=== PATIENT | male | born 1965 | race African-American/Black ===

== ENCOUNTER 2021-06-24 12:00 | Emergency (ER) | payer SELFPAY ==
[2021-06-24 12:01] VITALS: BP 149/82; PULSE 63; RESP 16; TEMP 36.6; O2SAT 97
--- NOTE | 2021-06-24 12:30 | W.ED.GENAD ---
Discharge Plan Disposition Patient Disposition: HOME Condition: Good Discharge Details Clinical Impression: Right sided abdominal pain Primary Care Provider: Unknown,Unknown ED Provider: Renu Anna Home Meds and New Rx's Prescriptions: No Action No Known Home Meds RF: 0 Discharge Instructions Instructions: Abdominal Pain (ED) Additional Instructions: Your exam is reassuring here today. You do not have any evidence to suggest emergent process. Your urinalysis did not show any blood which would increase my concern for potential kidney stone. No evidence of infection. You do look dehydrated. Please encourage hydration. Please try to have a more typical diet. If you develop increased pain, fever/chills, inability to hydrate or other new/worsening symptoms care urgent with again. Otherwise, please follow-up with primary care in 2 weeks when you return home for reevaluation. Discharge Data Discharge Date/Time-TO BE ENTERED AT DEPARTURE: 06/24/21 13:42 Medical Decision Making Patient is a pleasant 55 year old male presenting today with c/c of right-sided abdominal discomfort. States the pain began 2 hours ago. Describes a progressive onset. He states that he has had similar pain historically and was diagnosed with gas pain. Patient believes that this week his diet largely contributed to this. Patient typically resides in [facility] and has been working here for the week. He states that his hydration as well as dietary habits have been quite poor over the past week. He is concerned that he may have recurrent gas discomfort. Denies any fevers or chills. Denies any nausea or vomiting. No change in bowel habits or urinary habits. Denies any hematuria. Denies any testicular pain. Denies any rash. No trauma. Patient has been treating his discomfort topically with an onion. When he was getting in the ambulance, had complete resolution of his discomfort. On exam, patient appears nontoxic. He indicates the right lateral iliac area is area of discomfort. He has no abdominal discomfort on palpation. No pain over McBurney's point. Negative Denis's exam. No CVA tenderness. Vital signs are stable. He has no pain with palpation or movement of his hip. Ambulating normally. The patient has had full resolution of his symptoms prior to coming in, and I do not see any evidence of persistent discomfort or emergent abdominal pathology, do not feel that imaging is warranted at this time. He states that he has had similar discomfort in the past. I do question if this potentially be a kidney stone. However, even if it was, and found to have point season pain-free for quite some time. We will monitor the patient for a little while longer to ensure no recurrence of discomfort. Will obtain urinalysis to look for infection or hematuria. Patient eats lunch, took a nap and states that he is feeling much improved. His urinalysis shows elevated specific gravity but he has been hydrating orally here. No evidence of hematuria or infection. Discussed findings with the patient. He is quite reassured. Follow-up with his primary care provider when she returns home. I did encourage that even while he is away, he try to find the dietary options that we will keep his pain at bay that is found to have been something that he suffered from historically. Return precautions were discussed. Encourage hydration. All of his questions and concerns were addressed and he is agreement this plan. HPI General Mode of arrival: EMS. Date/Time Provider Initiated Documentation: 06/24/21 12:05. Limitations to Documentation: no limitations. Information obtained by: patient, EMS and RN notes reviewed. History of Present Illness 55 year old M presents to the emergency department with the chief complaint of right sided abdominal pain, described as mild (denies pain currently, states he is 100% normal), Quality is described as stabbing, and is localized to the abdomen. Patient reports no radiation. Patient started experiencing this hour(s) (2) and it has been now resolved. Movement improves symptom(s), Eating worsens symptoms (believes it was associated with dietary changes) . Patient notes no other symptoms.; denies chest pain, cough, fever/chills, loss of appetite, nausea/vomiting, rash and shortness of breath. Patient did receive the following treatments prior to arrival, none Related Data Home Medications Medication Instructions Recorded Confirmed Unknown [No Known Home Meds] 06/24/21 06/24/21 Allergies Allergy/AdvReac Type Severity Reaction Status Date / Time No Known Allergies Allergy Unverified 06/24/21 12:05 General Stated Complaint: FlankPain ASHLEY: 4 Review of Systems Constitutional Constitutional: Reports as per HPI, Denies chills, Reports fatigue (states he has been working 12hr shifts) and Denies fever(s) Cardiovascular Cardiovascular: Reports as per HPI, Denies chest pain and Denies dyspnea Respiratory Respiratory: Reports as per HPI, Denies cough and Denies dyspnea Gastrointestinal Gastrointestinal: Reports as per HPI Genitourinary Genitourinary: Denies system reviewed and no additional complaints, except as documented (patient denies any change in urinary habits), Denies hematuria, Denies difficulty urinating, Denies genital pain, Denies dysuria, Reports flank pain, Denies penile discharge, Denies scrotal swelling, Denies testicular pain, Denies urinary frequency and Denies urinary urgency Musculoskeletal Musculoskeletal: Reports as per HPI and Denies back pain Integumentary/Breasts Skin/Breast: Reports as per HPI and Denies rash Neurologic Neurologic: Reports as per HPI Endocrine Endocrine: Reports fatigue (states he has been working 12hr shifts) [facility] Active Problem List (Updated 06/24/21 @ 13:37 by GUMARO Siu) Right sided abdominal pain (Acute) Social History Smoking/Tobacco Use Status: Current every day Smoking risk assessment performed?: Yes Alcohol Intake: current Alcohol Intake frequency: holidays/special occasions only Drug use: Daily Substance use type: marijuana Do you feel safe at home: Yes Do you feel safe in your relationship?: Yes Exam Const General: cooperative, healthy appearing, comfortable, no acute distress and well developed Nutritional Appearance: average body habitus and well nourished Orientation: alert and awake [facility] Head: normal to inspection Mouth: moist mucous membranes Resp Effort & Inspection: normal respiratory effort, able to speak in complete sentences and no respiratory distress Auscultation: clear to auscultation bilaterally, no rales, no rhonchi and no wheezes Cardio Rate: regular rate Rhythm: regular rhythm Heart Sounds: S1 normal and S2 normal GI Inspection: normal to inspection, no edema, non-distended and no visible herniation Palpation: soft, no hepatosplenomegaly, not firm, no guarding, no hepatosplenomegaly, not rigid and nontender Percussion: normal to percussion Auscultation: normal bowel sounds Abdomen image: 1. Area of discomfort. Far lateral around area of iliac crest. No hip pain, no pain with ROM. No abdominal pain on palpation. Back/Spine/Pelvis Back: no CVA tenderness Skin General skin exam: no rashes or lesions noted Trauma: no lacerations or abrasions Neuro General: patient alert and patient awake Cognition: normal cognition Speech: speech normal Gait: normal gait Psych Appearance: grossly normal and well kempt Mental Status: mental status grossly normal Speech and Movement: speech and movement normal Course Vital Signs Vital signs: Vital Signs Temperature 36.6 C 06/24/21 12:01 Pulse 63 06/24/21 12:01 Respiratory Rate 16 06/24/21 12:01 Blood Pressure 149/82 H 06/24/21 12:01 Pulse Oximetry 97 06/24/21 12:01 Temperature 36.6 C 06/24/21 12:01 Pulse 63 06/24/21 12:01 Respiratory Rate 16 06/24/21 12:01 Respiratory Effort 06/24/21 12:06 Blood Pressure 149/82 H 06/24/21 12:01 Blood Pressure Position Supine 06/24/21 12:01 Pulse Oximetry 97 06/24/21 12:01 Oxygen Delivery Method Room Air 06/24/21 12:01 Oxygen Flow Rate 0 06/24/21 12:01 Pain Level 0 06/24/21 12:01
[2021-06-24 13:28] LABS: Bilirubin Negative (Negative); Blood Negative (Negative); Clarity Clear (Clear); Glucose Negative (Negative); Ketones Negative (Negative); Leukocyte Esterase Negative (Negative); Nitrite Negative (Negative); Specific Gravity >= 1.030 (1.005-1.025); Urobilinogen 0.2 EU/dL (Up TO 0.2)
== END 2021-06-24 13:42 | disposition home or self-care (01) ==
LOC: ER 13:48
PROVIDERS: Emergency Provider Physician Assistant
DX: R10.11 Right upper quadrant pain (principal); E86.0 Dehydration
CPT/HCPCS: 99283; 81003